=== PATIENT | male | born 1940 | race Caucasian/White ===

== ENCOUNTER 2019-09-09 12:48 | Outpatient (CLI) | payer MEDICARE ==
[~2019-09-09 12:48] MED LIST: ALLO300T PO; ASPI-515 PO; LISI-467 PO; METO25TA91 PO; MULT-26 PO; NIAC-1 PO; OMEG1CAP23 PO; SIMV20TA PO; VITA400C14 PO
[2019-09-09] MEDS ORDERED: SIMV40TA20 PO (13:17)
[2019-09-09] MEDS ORDERED: TAMS-11 PO (13:17)
[2019-09-09] MEDS ORDERED: CLON2TAB9 PO (13:17)
[2019-09-09] MEDS ORDERED: MULT-658 PO (13:37)
[2019-09-09] MEDS ORDERED: OMEG1CAP23 PO (13:37)
[2019-09-09] MEDS ORDERED: FLAX10004 PO (13:37)
[2019-09-09] MEDS ORDERED: CALC625T23 PO (13:37)
[2019-09-09 13:57] LABS: BASOPHILS # (AUTO) 0.02 x10^3/uL (0-0.1); BASOPHILS % (AUTO) 0 % (0-1); EOSINOPHILS # (AUTO) 0.23 x10^3/uL (0-0.4); EOSINOPHILS % (AUTO) 4 % (1-7); LYMPHOCYTES # (AUTO) 1.64 x10^3/uL (1-3.4); LYMPHOCYTES % (AUTO) 25 % (22-44); MD NO; MEAN CORPUSCULAR HEMOGLOBIN 32.6 pg (27.5-34.5); MEAN PLATELET VOLUME 8.3 fL (7.4-10.4); MONOCYTES # (AUTO) 0.68 x10^3/uL (0.2-0.8); MONOCYTES % (AUTO) 11 % (2-9); NEUTROPHILS # (AUTO) 3.91 x10^3/uL (1.8-6.8); NEUTROPHILS % (AUTO) 60 % (42-75); PLATELET COUNT 207 x10^3/uL (130-400); RED CELL DISTRIBUTION WIDTH 14.6 % (9.4-14.8)
[2019-09-09 14:07] LABS: PROTHROMBIN TIME 10.5 Seconds (9.6-11.5)
[2019-09-09 14:08] LABS: ALBUMIN 3.9 g/dL (3.4-5.0); ANION GAP 4 mmol/L (5-15); CALCIUM 9.5 mg/dL (8.5-10.1); CHLORIDE 109 mmol/L (98-107)
[2019-09-09 14:11] LABS: ALANINE AMINOTRANSFERASE 46 U/L (12-78); ALKALINE PHOSPHATASE 64 U/L (45-117); BILIRUBIN,TOTAL 1.7 mg/dL (0.2-1.0); CREATININE 1.05 mg/dL (0.7-1.3); TOTAL PROTEIN 7.4 g/dL (6.4-8.2)
== END 2019-09-09 23:59 | disposition home or self-care (01) ==
LOC: STAR 12:48
PROVIDERS: ATTEND Orthopaedic Surgery
DX: Z01.818 Encounter for other preprocedural examination (principal); M17.12 Unilateral primary osteoarthritis, left knee
CPT/HCPCS: 36415; 80053; 83036; 85025; 85610; 85730; 87081; 93005

== ENCOUNTER 2019-09-17 07:37 | Day surgery (SDC) | payer MEDICARE ==
[~2019-09-17] VITALS: Ht 182.9 cm; Wt 98.4 kg
[~2019-09-17 07:37] MED LIST changes: +ACETAMINOPHEN 650 MG/20.3 ML UDC PO PRN; +BISACODYL 10 MG SUPP PR PRN; +CALC625T23 PO; +CEFAZOLIN 1,000 MG ONE; +CLON2TAB9 PO; +DIPHENHYDRAMINE 25 MG CAPSULE PO PRN; +EPINEPHRINE 1 MG/ML, 1ML ONE; +FENTANYL PF 250 MCG/5ML ONE; +FLAX10004 PO; +HYDROcodone/APAP 5/325 TABLET PO PRN; +HYDROmorphone 1 MG/ML, 1ML INJ IV PRN; +KETOROLAC 60 MG/2 ML ONE; +MAGNESIUM HYDROXIDE 8%, 30ML UDC PO PRN; +MIDAZOLAM 1 MG/ML, 2ML ONE; +MULT-658 PO; +ONDANSETRON 2MG/ML, 2ML IV PRN; +ONDANSETRON 2MG/ML, 2ML ONE; +ONDANSETRON 4 MG TABLET PO PRN; +OXYcodone IR 5MG TABLET PO PRN; +PROPOFOL 10 MG/ML, 20ML ONE; +ROPIvacaine/PF 0.5%, 30 ML ONE; +SCOPOLAMINE PATCH, 1.5MG PATCH.TD72 TD ONE; +SENNA/DOCUSATE TABLET PO PRN; +SIMV40TA3 PO; +SODIUM CHLORIDE 0.9% 50 ML ONE; +TAMS-11 PO; +TEMPLATE NON-FORMULARY MED. (Clonazepam** 1 MG) PO SCH; +TRANEXAMIC ACID 100 MG/ML, 10ML ONE; +VANCOMYCIN 1,000 MG ONE; +ZOLPIDEM 5MG TABLET PO PRN
[2019-09-17] MEDS ORDERED: LACTATED RINGERS 1,000 ML IV SCH (08:06)
[2019-09-17 08:15] VITALS: BP 157/88
[2019-09-17] MEDS ORDERED: ACETAMINOPHEN 500 MG TABLET PO ONE (08:30)
[2019-09-17] MEDS ORDERED: GABAPENTIN 300 MG CAPSULE PO ONE (08:30)
[2019-09-17] MEDS ORDERED: DOCUSATE 100 MG CAPSULE PO SCH (09:00)
[2019-09-17] MEDS ORDERED: LISINOPRIL 20 MG TABLET PO SCH (09:00)
[2019-09-17] MEDS ORDERED: ONDANSETRON 2MG/ML, 2ML IV PRN (09:00)
[2019-09-17] MEDS ORDERED: HYDROmorphone 2 MG/ML, 1ML IVPush PRN (09:00)
[2019-09-17] MEDS ORDERED: LABETALOL 5MG/ML, 20ML IV PRN (09:00)
[2019-09-17] MEDS ORDERED: LORazepam 2 MG/ML, 1ML IVPush PRN (09:00)
[2019-09-17] MEDS ORDERED: hydrALAzine 20 MG/ML, 1ML IV PRN (09:00)
[2019-09-17] MEDS ORDERED: ALLOPURINOL 300 MG TABLET PO SCH (09:00)
[2019-09-17] MEDS ORDERED: TAMSULOSIN 0.4 MG CAP.ER.24H PO SCH (09:00)
[2019-09-17] MEDS ORDERED: OXYcodone 5 MG/5 ML ORAL.SOL UDC PO PRN (09:00)
[2019-09-17] MEDS ORDERED: METOPROLOL SUCCINATE 25 MG TAB.ER.24H PO SCH (09:00)
[2019-09-17] MEDS ORDERED: FENTANYL PF 100 MCG/2ML ONE (10:52)
[2019-09-17] MEDS ORDERED: OXYcodone 5 MG/5 ML ORAL.SOL UDC ONE (10:52)
[2019-09-17] MEDS: FENTANYL PF 100 MCG/2ML IV PRN ×4 (10:55→11:15)
[2019-09-17] MEDS ORDERED: CYCLOBENZAPRINE 10 MG TABLET ONE (11:21)
[2019-09-17] MEDS ORDERED: CYCLOBENZAPRINE 10 MG TABLET PO ONE (11:30)
[2019-09-17] MEDS ORDERED: NS + 20MEQ KCL 1,000 ML IV SCH (13:15)
[2019-09-17 14:00] VITALS: BP 118/73
[2019-09-17] MEDS ORDERED: CEFAZOLIN PMX 2GM/50ML 50 ML IVPB SCH (17:00)
[2019-09-17] MEDS ORDERED: TRAM50TA2 PO (17:44)
[2019-09-17] MEDS ORDERED: OXYC5CAP2 PO (17:44)
[2019-09-17] MEDS ORDERED: MELO7.5T31 PO (17:45)
[2019-09-17] MEDS ORDERED: ASPIRIN 81 MG TABLET EC PO SCH (18:00)
[2019-09-17] MEDS ORDERED: SIMVASTATIN 40 MG TABLET PO SCH (21:00)
[2019-09-18] MEDS ORDERED: DEXAMETHASONE 4 MG/ML, 1ML IVPush SCH (06:00)
== END 2019-09-17 18:20 | disposition home or self-care (01) ==
LOC: OUT 07:37 → 4NE 12:57 → OUT 18:20
PROVIDERS: ATTEND Orthopaedic Surgery
DX: M17.12 Unilateral primary osteoarthritis, left knee (principal); M25.762 Osteophyte, left knee; I10 Essential (primary) hypertension; N40.0 Benign prostatic hyperplasia without lower urinary tract symptoms; M10.9 Gout, unspecified; H40.9 Unspecified glaucoma; Z79.899 Other long term (current) drug therapy; Z87.891 Personal history of nicotine dependence; Z98.52 Vasectomy status; Z98.890 Other specified postprocedural states; Z82.3 Family history of stroke
CPT/HCPCS: 27447; 64447; 97161; C1713; C1776; J0171; J0690; J1885; J2250; J2405; J2704; J2795; J3010; J3370; G0378